=== PATIENT | male | born 1950 | race Caucasian/White ===

== ENCOUNTER 2019-07-08 11:23 | Outpatient (CLI) | payer MEDICARE, OTHER | END 2019-07-08 11:24 | disposition short-term general hospital (02) | LOC: EMS 11:23 | PROVIDERS: ATTEND Surgery | DX: M54.5 Low back pain (principal) | CPT/HCPCS: A0425; A0429; A0888 ==

== ENCOUNTER 2020-08-29 00:04 | Outpatient (CLI) | payer MEDICARE, OTHER | END 2020-08-29 00:05 | disposition critical access hospital (66) | LOC: EMS 00:04 | PROVIDERS: ATTEND Surgery | DX: R55 Syncope and collapse (principal); S09.90XA Unspecified injury of head, initial encounter; W19.XXXA Unspecified fall, initial encounter; Y92.008 Other place in unspecified non-institutional (private) residence as the place of occurrence of the external cause | CPT/HCPCS: A0425; A0427 ==

== ENCOUNTER 2020-08-29 00:25 | Emergency (ER) | payer MEDICARE, OTHER ==
[2020-08-29 01:11] LABS: BASOPHILS % (AUTO) 0.5 %; EOSINOPHILS # (AUTO) 0.2 10^3/uL (0.0-0.7); EOSINOPHILS % (AUTO) 2.2 %; HGB - HEMOGLOBIN 15.1 g/dL (14.0-18.0); LYMPHOCYTES # (AUTO) 1.9 10^3/uL (1.5-3.5); LYMPHOCYTES % (AUTO) 25.6 %; MEAN CORPUSCULAR HEMOGLOBIN 34.3 pg (27.0-31.0); MEAN CORPUSCULAR HGB CONC 33.3 g/dL (32.0-36.0); MEAN PLATELET VOLUME 9.4 fL (7.4-11.4); MONOCYTES # (AUTO) 0.9 10^3/uL (0.0-1.0); NEUTROPHILS # (AUTO) 4.2 10^3/uL (1.5-6.6); NEUTROPHILS % (AUTO) 57.1 %; PLT - PLATELET COUNT 195 10^3/uL (130-450); WHITE BLOOD COUNT 7.3 x10^3/uL (4.8-10.8)
[2020-08-29 01:19] LABS: INR 1.1 (0.8-1.2); PT - PROTHROMBIN TIME 12.6 secs (9.9-12.6)
--- NOTE | 2020-08-29 01:19 | ED Physician Documentation ---
History of Present Illness - Stated complaint Stated Complaint: SYNCOPE - Chief complaint Chief Complaint: Neuro - History obtained from History obtained from: Patient, EMS - Additonal information Additional information: The patient reports that he was getting ready for bed. The next thing that he realized, he was lying on the floor. He does not believe he was unconscious for very long but he definitely did lose consciousness. He had no preceding chest pain, palpitations, lightheadedness, dizziness or shortness of breath. He has had one similar event in the past and this was prior to his having had a pacemaker placed. He says that it was put in for an irregular heartbeat. He was seen by his senior bioinformatics scientist in [place] 3 days ago and had his pacemaker interrogated. He reports that everything was unremarkable. He hit the back of his head. He sustained a cut there. He does not know when his last tetanus immunization was. He otherwise denies any injuries. Review of Systems Constitutional: denies: Fever, Chills, Fatigue, Weight Loss Cardiac: denies: Chest pain / pressure, Palpitations, Pedal edema, Calf pain Respiratory: denies: Dyspnea, Cough, Wheezing GI: denies: Abdominal Pain, Abdominal Swelling, Nausea, Vomiting, Constipation, Diarrhea : denies: Dysuria Neurologic: reports: Syncope, Headache, Head injury, LOC. denies: Generalized weakness, Focal weakness, Numbness, Difficulty speaking, Confused PD PAST MEDICAL HISTORY - Past Medical History Past Medical History: Yes - Past Surgical History Past Surgical History: Yes - Present Medications Home Medications: Ambulatory Orders Medication Instructions Recorded Confirmed Cholecalciferol (Vitamin D3) 1,250 mcg PO DAILY 08/29/20 08/29/20 [Vitamin D3] Hydroxychloroquine [Plaquenil] 100 mg PO BID 08/29/20 08/29/20 Metoprolol Succinate 100 mg PO DAILY 08/29/20 08/29/20 Prednisone 10 mg PO DAILY 08/29/20 08/29/20 lisinopriL [Lisinopril] 10 mg PO DAILY 08/29/20 08/29/20 - Allergies Allergies/Adverse Reactions: Allergies Allergy/AdvReac Type Severity Reaction Status Date / Time aspirin Allergy Dizziness Verified 08/29/20 01:47 - Social History Does the pt smoke?: No Smoking Status: Never smoker Does the pt drink ETOH?: No Does the pt have substance abuse?: No - Immunizations Immunizations are current?: Yes PD ED PE NORMAL - Vitals Vital signs reviewed: Yes - General General: Alert and oriented X 3, No acute distress - HEENT HEENT: PERRL, EOMI, Other (Posterior scalp abrasion) - Neck Neck: Supple, no meningeal sign - Cardiac Cardiac: RRR, No murmur, No gallop, No rub - Respiratory Respiratory: No respiratory distress, Clear bilaterally - Abdomen Abdomen: Normal bowel sounds, Soft, Non tender, Non distended - Rectal Rectal: Other (Right posterior chest wall tenderness) - Back Back: Other - Derm Derm: Warm and dry - Extremities Extremities: No deformity - Neuro Neuro: Alert and oriented X 3, survey technologist 2-12 intact, No motor deficit, No sensory deficit Eye Opening: Spontaneous Motor: Obeys Commands Verbal: Oriented GCS Score: 15 - Psych Psych: Normal mood, Normal affect Results - Vitals Vitals: Vital Signs - 24 hr 08/29/20 08/29/20 08/29/20 00:35 00:40 01:27 Temperature 36.5 C 36.5 C Heart Rate 80 80 87 Respiratory 16 16 15 Rate Blood Pressure 125/83 H 125/83 H 108/86 H O2 Saturation 94 94 95 08/29/20 08/29/20 08/29/20 01:30 02:26 02:32 Temperature 36.5 C 36.3 C L 37.1 C Heart Rate 88 80 93 Respiratory 24 12 14 Rate Blood Pressure 110/72 128/85 H 142/86 H O2 Saturation 99 96 99 08/29/20 08/29/20 08/29/20 03:50 05:42 06:11 Temperature 36.4 C L 36.5 C Heart Rate 83 79 84 Respiratory 26 H 14 21 Rate Blood Pressure 127/87 H 107/89 H 115/74 O2 Saturation 98 96 94 08/29/20 08/29/20 06:36 06:47 Temperature 36.7 C 36.9 C Heart Rate 78 80 Respiratory 23 20 Rate Blood Pressure 107/78 107/78 O2 Saturation 94 98 Oxygen O2 Source Nasal cannula Oxygen Flow Rate 2 - EKG (time done) 00:32 Other comments: Other comments - Labs Labs: Laboratory Tests 08/29/20 08/29/20 08/29/20 00:55 00:55 00:55 WBC 7.3 RBC 4.40 L Hgb 15.1 Hct 45.3 MCV 103.0 H MCH 34.3 H MCHC 33.3 RDW 15.0 Plt Count 195 MPV 9.4 Neut # (Auto) 4.2 Lymph # (Auto) 1.9 [place] # (Auto) 0.9 Eos # (Auto) 0.2 Baso # (Auto) 0.0 Absolute Nucleated RBC 0.00 Nucleated RBC % 0.0 PT INR APTT D-Dimer Sodium 139 Potassium 3.3 L Chloride 106 Carbon Dioxide 19 L Anion Gap 14.0 H BUN 34 H Creatinine 0.9 Estimated GFR (MDRD) 83 L Glucose 173 H Calcium 9.3 Total Bilirubin 0.6 AST 55 H ALT 47 Alkaline Phosphatase 78 Troponin I High Sens 15.3 B-Natriuretic Peptide Total Protein 6.5 L Albumin 3.8 Globulin 2.7 Albumin/Globulin Ratio 1.4 Lipase 45 08/29/20 08/29/20 00:55 00:55 WBC RBC Hgb Hct MCV MCH MCHC RDW Plt Count MPV Neut # (Auto) Lymph # (Auto) [place] # (Auto) Eos # (Auto) Baso # (Auto) Absolute Nucleated RBC Nucleated RBC % PT 12.6 INR 1.1 APTT 24.7 L D-Dimer > 1050.0 H Sodium Potassium Chloride Carbon Dioxide Anion Gap BUN Creatinine Estimated GFR (MDRD) Glucose Calcium Total Bilirubin AST ALT Alkaline Phosphatase Troponin I High Sens B-Natriuretic Peptide 35 Total Protein Albumin Globulin Albumin/Globulin Ratio Lipase - Rads (name of study) 1 view chest x-ray Radiology: Prelim report reviewed, EMP read contemporaneously (No acute cardiopulmonary process.) CT head without contrast Radiology: Prelim report reviewed, EMP read contemporaneously (No acute intracranial infarct or hemorrhage. Periventricular and deep white matter hypodensity secondary to chronic microangiopathic disease. Scattered areas of focal encephalomalacia likely secondary to remote ischemic events. Chronic left maxillary sinusitis.) CT cervical spine without contrast. Radiology: Prelim report reviewed, EMP read contemporaneously C TA chest with contrast. Radiology: EMP read contemporaneously PD MEDICAL DECISION MAKING - ED course Complexity details: reviewed results, re-evaluated patient, considered differential, d/w patient, d/w financial reporting consultant ED course: The patient remained stable while in the emergency department. On reevaluation he And denied any pain. He reports a distant history of a right scapular fracture. However, as noted on examination he had tenderness over the scapula and ribs. I had already discussed his case with Dr. Escobar, the hospitalist at [facility] where the patient receives his cardiac care. We reviewed the patient's history, examination findings and the results of his studies with the exception of the pending CTA. She accepted the patient in transfer for further evaluation and treatment. As he was departing the emergency department I contacted her with the results of the CTA. She expressed concern given the 3 rib fractures and his age. Therefore, she requested that their orthopedist and manager heavy equipment discussed the case with us. The patient's transport was held. I discussed his case with the oncoming physician here, Dr. Silverman. We reviewed the patient's history, examination findings and the results of his studies. He will discussed the patient with the manager heavy equipment and financial reporting consultant there. Departure - Departure Disposition: 02 Transfer Acute Care Hosp Clinical Impression: Abrasion Syncope Qualifiers: Syncope type: unspecified Qualified Code(s): R55 - Syncope and collapse Right scapula fracture Qualifiers: Encounter type: initial encounter Scapula location: unspecified part of scapula Fracture type: closed Qualified Code(s): S42.101A - Fracture of unspecified part of scapula, right shoulder, initial encounter for closed fracture Rib fractures Qualifiers: Encounter type: initial encounter Rib fracture type: multiple ribs Fracture type: closed Laterality: right Qualified Code(s): S22.41XA - Multiple fractures of ribs, right side, initial encounter for closed fracture Condition: Serious Discharge Date/Time: 08/29/20 06:51
[2020-08-29 01:22] LABS: ALBUMIN 3.8 g/dL (3.2-5.5); ALBUMIN/GLOBULIN RATIO 1.4 (1.0-2.2); BILIRUBIN,TOTAL 0.6 mg/dL (0.2-1.0); CALCIUM 9.3 mg/dL (8.5-10.3); CREATININE 0.9 mg/dL (0.6-1.2); TOTAL PROTEIN 6.5 g/dL (6.7-8.2)
[2020-08-29 01:26] LABS: D-DIMER > 1050.0 ng/mL (200.0-255.0)
[2020-08-29 01:40] LABS: PARTIAL THROMBOPLASTIN TIME 24.7 secs (24.9-33.3)
[2020-08-29] MEDS ORDERED: IOVERSOL 320 100 ML VIAL IVP ONE ×2 (03:24→06:39)
[2020-08-29 06:37] VITALS: BP 107/78
--- NOTE | 2020-08-29 08:13 | ED Physician Documentation ---
ED Addendum - Addendum Addendum: 08/29/20 08:11 On my arrival for my shift at 7 AM this patient was leaving for [facility]. From my understanding from Dr. Zuniga this is a patient with high risk syncope, history of CHF (tamara EF 20%), biventricular pacemaker who had syncope without premonition last night and lives alone. He was already on the ambulance and I did not see the patient. After the patient was loaded on the ambulance and basically on the way to [facility] it was noted that his CAT scan of his chest to rule out PE which was done for a D-dimer that was elevated was notable for 3 rib fractures and a scapular fracture. Dr. Zuniga had called [facility] discussed this and after some phone calls back and forth, Tammi at the [facility] transfer center called me back and told me that they were not capable of handling this patient due to the trauma and recommended calling Renetta sarabia. The ambulance was notified with the lead medic to come back. [facility] was called for transfer. 08/29/20 08:[address] Ching at [facility] at 8:30 AM. Diagnosis 1. Syncope 2. Multiple right-sided rib fractures 3. Scapular fracture 4. History of cardiomyopathy Disposition transfer to [facility] ER, condition guarded 08/29/20 08:38 Lead medic was updated and will contact the ambulance regarding the change of disposition, [place] I am unable to fill out new [employer] paperwork. 08/29/20 09:30
== END 2020-08-29 06:51 | disposition short-term general hospital (02) ==
LOC: EDUNIT# → ED 00:25
DX: R55 Syncope and collapse (principal); S22.41XA Multiple fractures of ribs, right side, initial encounter for closed fracture; S42.101A Fracture of unspecified part of scapula, right shoulder, initial encounter for closed fracture; S00.01XA Abrasion of scalp, initial encounter; W18.30XA Fall on same level, unspecified, initial encounter; Y92.009 Unspecified place in unspecified non-institutional (private) residence as the place of occurrence of the external cause; R79.89 Other specified abnormal findings of blood chemistry; I42.9 Cardiomyopathy, unspecified; I50.9 Heart failure, unspecified; Z95.0 Presence of cardiac pacemaker; J32.0 Chronic maxillary sinusitis
CPT/HCPCS: 36415; 70450; 71045; 71275; 72125; 80053; 83690; 83880; 84484; 85025; 85379; 85610; 85730; 93005; 99283; 99285; Q9967

== ENCOUNTER 2020-08-29 07:05 | Outpatient (CLI) | payer MEDICARE, OTHER | END 2020-08-29 07:06 | disposition short-term general hospital (02) | LOC: EMS 07:05 | PROVIDERS: ATTEND Surgery | DX: R55 Syncope and collapse (principal) | CPT/HCPCS: A0425; A0426 ==

== ENCOUNTER 2023-09-18 15:44 | Emergency (ER) | payer MEDICARE, OTHER ==
[2023-09-18 16:03] VITALS: O2SAT 96
[2023-09-18] MEDS: TETANUS/DIPHTHERIA/PERTUSSIS 0.5 ML SYRINGE IM ONE (16:21)
[2023-09-18] MEDS: lidocaine 1% 20 ML MDV SUBQ ONE (16:21)
--- NOTE | 2023-09-18 16:21 | ED Physician Documentation ---
History of Present Illness - Stated complaint Stated Complaint: L HAND LAC - Chief complaint Chief Complaint: Trauma Ext - Additonal information Additional information: 73-year-old male presents emergency department for evaluation of a left hand laceration sustained when using a table saw. [id number]. Uncertain of last tetanus. 73-year-old male presents emergency department for evaluation of a left hand laceration sustained when using a table saw. Eqfzq-pfao-[id number]. Uncertain of last tetanus. Patient does have a history of significant rheumatoid arthritis with chronic deformity to his hands. Review of Systems Skin: reports: Laceration (s) PD PAST MEDICAL HISTORY - Past Medical History Past Medical History: Yes Cardiovascular: Hypertension Musculoskeletal: Rheumatoid arthritis - Past Surgical History Past Surgical History: Yes Ortho: Hip replacement, Spine surgery - Present Medications Home Medications: Ambulatory Orders Medication Instructions Recorded Confirmed Hydroxychloroquine [Plaquenil] 100 mg PO BID 08/29/20 08/29/20 Metoprolol Succinate 100 mg PO DAILY 08/29/20 08/29/20 lisinopriL [Lisinopril] 10 mg PO DAILY 08/29/20 08/29/20 predniSONE [Prednisone] 10 mg PO DAILY 08/29/20 08/29/20 Abatacept [Orencia Clickject] 09/18/23 09/18/23 Alendronate Sodium 35 mg PO ONCE 09/18/23 09/18/23 Apixaban [Eliquis] 5 mg ORAL BID 09/18/23 09/18/23 Triamcinolone 0.1% Oint [Kenalog 1 applic TOP BID 09/18/23 09/18/23 0.1% Oint] cephALEXin [Keflex] 500 mg PO Q6H #28 cap 09/18/23 oxyCODONE [Roxicodone] 5 mg PO TID PRN #20 tablet 09/18/23 - Allergies Allergies/Adverse Reactions: Allergies Allergy/AdvReac Type Severity Reaction Status Date / Time aspirin Allergy Dizziness Verified 08/29/20 01:47 - Social History Does the pt smoke?: No Smoking Status: Never smoker Does the pt drink ETOH?: No Does the pt have substance abuse?: No - Immunizations Immunizations are current?: Yes - POLST Patient has POLST: No PD ED PE EXPANDED - Extremities Extremities: Left hand (Macerated laceration dorsum left hand overlying the MCP and proximal phalanx. Patient is able to flex and extend at MCP and PIP normally. Normal sensation. Flexor tendn exposed. macerated wound) Results - Vitals Vitals: Vital Signs - 24 hr 09/18/23 15:55 Temperature 36.2 C L Heart Rate 70 Respiratory 20 Rate Blood Pressure 120/81 H O2 Saturation 96 Oxygen O2 Source Room air - Rads (name of study) left hand Relevant Findings:: Final report received (no fractures) Procedures - Laceration (location) lef thand Length in cm: 7 Wound type: Into muscle, Contaminated, Exposure of bone Neurovascular status: Sensory intact, Motor intact Tendon involvement: Tendon Injury Anesthesia: Lidocaine 1% Wound preparation: Chlorhexadine, Irrigated copiously NS Skin layer closure: Nylon, Interrupted, Size #-0 - enter number (4), Sutures - enter # (7) Other: Patient tolerated well, Tetanus booster given, Other (Quite a macerated wound on the dorsum of the left hand at the MCP joint proximal phalanx with exposed tendon though preserved flexion extension.) PD Medical Decision Making - ED course Complexity details: reviewed results, d/w patient ED course: 73-year-old male presents emergency department for evaluation of a laceration sustained to the dorsum of his left hand when using a table saw. At baseline he has chronically deformed hands secondary to rheumatoid arthritis. The wound was macerated and stellate with exposure of the tendon though he has preserved flexion extension at both MCP and PIP joint. Here in the emergency department tetanus was updated. An x-ray of the hand showed no definitive acute bony abnormalities. The wound was closed using 7 interrupted sutures though some of the wound was too denuded to properly close. Patient was placed in an extension splint. He is advised prompt follow-up and referral to hand specialist for further evaluation. He will be started on Keflex as well as a limited amount of oxycodone for pain. I am prescribing a short course of short-acting opioid pain medication for this patient. 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 I have discussed that the opioids are for short term therapy only, and will not be refilled from the ED. Departure - Departure Disposition: 01 Home, Self Care Clinical Impression: Tendon injury Laceration of left hand Qualifiers: Encounter type: initial encounter Foreign body presence: without foreign body Qualified Code(s): S61.412A - Laceration without foreign body of left hand, initial encounter Condition: Stable Follow-Up: Rylan Nogueira MD [Primary Care Provider] - Prescriptions: cephALEXin [Keflex] 500 mg PO Q6H #28 cap oxyCODONE [Roxicodone] 5 mg PO TID PRN #20 tablet PRN Reason: Pain Comments: [place] you have sustained a fairly significant laceration to the top of your left hand and small finger when using a table saw. The wound did expose your tendon though you appear to at this time still have normal flexion and extension of the finger. We did close your wounds as best as we could with 7 sutures. These should be removed in 10 to 14 days. This wound is at higher risk of infection so please fill the prescription for the Keflex and begin taking as directed. I am please call your primary care doctor tomorrow to discuss this emergency department visit. You should be referred to a hand specialist for follow-up. Return immediately to the ER if you are having any new or worsening symptoms or concerns of infection. In general you should gently wash this wound with warm soap and water each day a nd then apply antibiotic ointment. Please use the aluminum splint to keep your finger in extension. It is important to reduce movement of the finger and joints to allow the wound to heal and as well to allow the tendon to heal. I would recommend taking Tylenol and ibuprofen gwiu-ioh-gbifexq for discomfort. For more severe pain a limited amount of oxycodone has been sent to your preferred pharmacy. I am prescribing a short course of narcotic pain medication for you. These are potentially dangerous and addictive medications that should be used carefully. These medications may constipate you. Take an vmje-ahu-torsviv stool softener (docusate) twice daily with plenty of water while taking these medications. If you go 24 hours without a bowel movement, take zsqy-ymy-xltsehb miralax, per pa ckage instructions. Do not drink or drive while taking these medications. If you received narcotic or sedating medications while in the emergency department, do not drive for 24 hours. Store this medication in a safe, secure place and out of reach of children. It is a violation of federal law to give or sell this medication to another person or to use in a manner other than prescribed. The ED will not refill narcotic prescriptions, including prescriptions lost or stolen. To dispose of unwanted medications: 1. [facility] at [address] in [place] has a medication drop box. They accept prescription medications (in pill form) Monday through Monday 9:00 a.m. to 5:00 p.m. 2. The [facility] accepts prescription medications (in pill form only) for disposal year round. Call for more information. 3. Contact the [facility] for the next [facility] sponsored prescription drug collection event. , [phone], or [phone]; Note that many narcotic pain relievers also contain Tylenol/acetaminophen. Please ensure that your total dose of acetaminophen from all sources does not exceed 3 g (3000 mg) per day. Forms: PCP List
[2023-09-18] MEDS: cefTRIAXone 1 GM VIAL IM STA (17:11)
[2023-09-18] MEDS: LIDOCAINE 1% 2 ML VIAL MC ONE (17:11)
--- NOTE | 2023-09-18 17:13 | XRAY Report ---
PROCEDURE: Hand 3 View LT INDICATIONS: vs tablse saw; ? fx at [facility] small finger TECHNIQUE: 3 views of the hand(s) acquired. COMPARISON: None. FINDINGS: Bones: The lateral view is suboptimal. No fractures or dislocations. No suspicious bony lesions. Se verely abnormal appearance of the first carpometacarpal joint, second distal interphalangeal joint, t hird proximal interphalangeal joint and the fourth distal interphalangeal joint with joint space narr owing, subluxation, bony erosion and periarticular soft tissue swelling. There is Moderate degenerat ion of the first metacarpal phalangeal joint and mild degeneration and multiple interphalangeal joint s. Soft tissues: Periarticular calcifications are noted at the surgical proximal interphalangeal joint. Vascular calcifications consistent esophageal stenosis. IMPRESSION: 1. No definitive acute bony abnormality although the lateral view is suboptimal. 2. Markedly abnormal appearance of multiple joints and third process involving the first carpometacar pal joint, the second distal interphalangeal joint, the third proximal interphalangeal joint and the fourth distal interphalangeal joint. Differential diagnoses are inflammatory arthritis, posttraumatic change/or postinfectious process. Recommend clinical correlation and comparison to prior examination s, if available. Reviewed by: Precious Jolley MD on 09/18/2023 5:12 PM PST Approved by: Precious Jolley MD on 09/18/2023 5:12 PM PST Station ID: [id number]
[2023-09-18 17:34] VITALS: BP 129/88
== END 2023-09-18 17:33 | disposition home or self-care (01) ==
LOC: ED 15:44
DX: S61.412A Laceration without foreign body of left hand, initial encounter (principal); S66.902A Unspecified injury of unspecified muscle, fascia and tendon at wrist and hand level, left hand, initial encounter; W29.8XXA Contact with other powered hand tools and household machinery, initial encounter; M06.9 Rheumatoid arthritis, unspecified; I10 Essential (primary) hypertension; Z79.899 Other long term (current) drug therapy; Z23 Encounter for immunization; Z79.01 Long term (current) use of anticoagulants
CPT/HCPCS: 12042; 90471; 99283